=== PATIENT | male | born 1950 | race Caucasian/White ===

== ENCOUNTER 2018-10-16 21:34 | Emergency (ER) | payer MEDICAID, MEDICARE ==
[~2018-10-16] VITALS: Ht 160 cm; Wt 72.6 kg
[2018-10-16 21:40] VITALS: Ht 160 cm; Wt 72.6 kg
[2018-10-16 23:45] VITALS: BP 134/76
== END 2018-10-16 23:45 | disposition home or self-care (01) ==
LOC: ED 21:34
DX: H10.213 Acute toxic conjunctivitis, bilateral (principal); I10 Essential (primary) hypertension; E11.9 Type 2 diabetes mellitus without complications; E78.00 Pure hypercholesterolemia, unspecified
CPT/HCPCS: 82962; J7030; V2632